=== PATIENT | female | born 1940 | race Caucasian/White ===

== ENCOUNTER 2023-04-27 20:23 | Emergency (ER) | payer OTHER, SELFPAY ==
[2023-04-27 20:25] VITALS: BP 150/60
[2023-04-27] MEDS: ADACEL 0.5 ML IM (22:44)
--- NOTE | 2023-04-27 22:51 | ED.GENMED ---
History of Present Illness
General
Chief Complaint: Fall
Time Seen by Provider: 04/27/23 21:18
Travel History
Have you had any contact with someone who has COVID-19?: No
Do you have any symptoms of coronavirus? Fever > 100 degrees, chills, cough, shortness of breath, sore throat, loss of taste or smell, muscle aches, or headache?: No
History of Present Illness
History of Present Illness:
83-year-old female presents the emergency department for evaluation of left elbow pain after a mechanical fall. She struck her elbow against a nearby object. There is a laceration to the left elbow with active bleeding. She is on Eliquis. Denies
any head strike or loss of consciousness. Denies any other complaints. Last tetanus is unknown
Past History
Past History
ED Past Medical History: Arrthythmia (Atrial fibrillation), HTN, Hypercholesterolemia and Other (parkinsons)
Patient has exhibited threatening behavior?: No
PSI?: No
Social History
Tobacco: Non-smoker
Alcohol: None
Drug: None
Personal:
Living: with family
Review of Systems
Review of Systems
Allergies reviewed?: Yes
All Other Systems: ROS reviewed and negative except as documented in HPI and ROS
Phy Exam
Physical Exam
Physical Exam:
GEN: Well appearing, NAD, WDWN
Eyes: PERRLA, EOMs intact, no scleral icterus
HENT: NCAT, oral mucosa moist, no JVD, no cervical adenopathy.
Lungs: CTAB, no wheezes, rales, rhonchi, normal chest wall excursion
Cardiac: RRR, no M/R/G, no peripheral edema. Radial pulses 2+ bilat
Neuro: AO x 3, no focal deficits to BUE/BLE, normal sensation throughout
MSK: Swelling and ecchymosis to the left olecranon with diffuse swelling of the left olecranon bursa. There is a 1.5 cm laceration overlying the central aspect of the bursa
Skin: No rashes, petechiae. Normal color, no pallor or jaundice.
Psych: Calm, cooperative, proper hygiene
Course
Orders/Labs/Results
Orders:
Orders
04/27/23 22:31
Cephalexin Monohydrate [Keflex] 500 mg PO NOW STA
Tetanus/Diphth/Acelpertussis [Adacel] 0.5 ml IM .ONCE ONE
CR Elbow - Left Min 3 Views Urgent
Comment:
Reason For Exam: fall elbow injury
04/27/23 23:15
Acetaminophen [Tylenol] 650 mg PO NOW STA
Vital Signs
Initial and Last Documented VS:
Initial Vital Signs
Temp Pulse Resp BP Pulse Ox
97.8 F 60 18 150/60 96
04/27/23 20:25 04/27/23 20:25 04/27/23 20:25 04/27/23 20:25 04/27/23 20:25
Last Documented Vital Signs
Temp Pulse Resp BP Pulse Ox
97.8 F 59 18 145/60 95
04/27/23 20:25 04/27/23 23:11 04/27/23 20:25 04/27/23 23:11 04/27/23 23:11
MDM/Problems Addressed
MDM/Problems Addressed:
There is significant swelling of the left olecranon bursa. Given the adjacent wound we will cover with antibiotics to hopefully prevent an olecranon bursitis. Tetanus updated
Comment
Comment:
The 1.5 cm left olecranon wound was cleansed copiously with normal saline. Anesthetized with 1% lidocaine with epinephrine, 5 mL injected adjacent to the wound. 3 4-0 Prolene sutures were used to reapproximate the wound with good apposition.
Dressed with nonstick gauze and bacitracin
*Critical Care Note
Total Time (30-74mins, 75-104mins- exclusive of procedures): Not Applicable
ED Attending Note
-
Portions of this chart may have been created with voice recognition software.� Occasional wrong word or��sound alike� substitutions may have occurred due to the inherent limitations of voice recognition software.
Discharge Plan
Departure
Patient Disposition: Home (Routine Discharge)
Date of Disposition: 04/27/23
Time of Disposition: 23:35
Patient with high blood pressure during this ER visit?: No
Discharge Problem:
Laceration of elbow, left
Instructions: Wound Care (DC)
Prescriptions:
New
cephalexin 500 mg capsule
500 mg PO TID 7 Days Qty: 21 0RF
No Action
omeprazole 20 MG capsule,delayed release(DR/EC)
40 mg PO DAILY
oxycodone-acetaminophen 5 MG/325 MG tablet
1 tab PO Q4HPRN PRN (Reason: pain) Qty: 17 0RF
docusate sodium 100 MG capsule
100 mg PO BID
vitamin B complex 1 TAB tablet
1 tab PO DAILY
cholecalciferol (vitamin D3) 1,000 UNITS tablet
1,000 units PO DAILY
Lactobacillus acidophilus [Probiotic] 1 EACH capsule
1 ea PO DAILY
apixaban [Eliquis] 5 MG tablet
5 mg PO BID
diltiazem HCl 300 MG capsule,extended release 24hr
300 mg PO DAILY
rosuvastatin 20 MG tablet
20 mg PO QPM
metoprolol tartrate 25 MG tablet
25 mg PO DAILY
timolol maleate 1 DROP drops
1 drp OPHTHALMIC BID
amoxicillin-pot clavulanate 875-125 mg tablet
1 tab PO BID Qty: 14 0RF
fosfomycin tromethamine [Monurol] 3 gram packet
3 g PO ONCE Qty: 1 0RF
Referrals:
Olivia Samano MD [Family Provider] -
Activity Restrictions/Additional Instructions:
Keep dry for 24 hours, then gently wash with soap and water each day until suture removal
Take the antibiotics as prescribed
If the elbow becomes red, hot and swollen, return for re-evaluation
Suture removal in 10-14 days by your primary care doctor, urgent care, or ER
Interventions
Interventions:
*Risk Screen - Suicide Last Done: 04/27/23 21:21
*General Assessment Last Done: 04/27/23 21:21
*Neglect/Abuse Screening Last Done: 04/27/23 21:21
ED- Fall Risk Assessment Last Done: 04/27/23 23:50
*ED COVID-19 Vaccine History Last Done: 04/27/23 23:14
*Nursing Disposition Last Done: 04/27/23 23:50
ED-Musculoskeletal Assessment Last Done: 04/27/23 21:22
ED- Neurological Assessment Last Done: 04/27/23 21:22
ED-Skin Assessment Last Done: 04/27/23 21:22
Discharge Date and Time
Discharge Date/Time: 04/27/23 23:50
[2023-04-27] MEDS: KEFLEX 500 MG PO (23:09)
[2023-04-27 23:11] VITALS: BP 145/60
[2023-04-27] MEDS: TYLENOL 650 MG PO (23:22)
== END 2023-04-27 23:50 | disposition home or self-care (01) ==
LOC: EMR 20:23
PROVIDERS: EMERGENCY PHYSICIAN Emergency Medicine; FAMILY PHYSICIAN Student in an Organized Health Care Education/Training Program
DX: S51.012A Laceration without foreign body of left elbow, initial encounter (principal); W19.XXXA Unspecified fall, initial encounter; Z23 Encounter for immunization
CPT/HCPCS: 99283; 12001; 90471; 73080; 90715

== ENCOUNTER → 2023-05-28 12:00 | Outpatient (REF) | payer OTHER, SELFPAY ==
--- NOTE | 2023-05-15 10:41 | PN.DIAED02 ---
Referral
DSME Class Series Code: [id number]
Referred For: Diabetes Self-Management Training, Self-Blood Glucose Monitoring, Long-Term Complication Instruction, Accute Complication Instruction, Disease Management
PHI Release Authorization Form Signed: Yes
Patient Problems:
Current Active Problems
Problem Status Onset
Type 2 diabetes mellitus without complications ~03/30/23
Demographic
(1) Type 2 diabetes mellitus without complications
Status: Acute Code(s): E11.9 - Type 2 diabetes mellitus without complications
Patient's primary language-: Taiwanese
Education: Vocation/Trade
Occupation: Retired
- Social
Primary Support Person: Self & spouse, Child
Primary Care Takers: Self & spouse, Child
Living Arrangements: Self & spouse, Child
- Learning Methods
Preferred Method: Hands-on demonstration
Barriers to Learning: None
Glycemic Control
- Blood Glucose Monitoring Assessment
Blood glucose monitoring at home: No
Frequency: 1x per day
Time: fasting
Patient uses Alternate Site Testing: No
Patient instructed on Use and Limitation: No
- Hypoglycemia Assessment
Patient has required treatment by others: No
History of Hypoglycemia Unawareness: No
- Hemoglobin A1c
Date: 03/30/23
A1C Percentage (%): 6.9
Medical History of Diabetes
Family Diabetes History: Mother
Previous Diabetes Education: No
Previous visit with Dietitian: No
Complications/Comorbidity/Specialist: Glaucoma, Heart Disease, Hypertension, Hyperlipidemia, Neuropathy, Poor circulation
Measures
- Anthropometrics
Height: 5 ft
Actual Weight: 62.142 kg
- Blood Pressure / Pulse
Blood pressure: 115/55
Pulse: 56
- Diabetes Management
Medical Management for Diabetes: Complete physical exam (02/07/2023), Dental exam (04/19/2023), Dilated eye exam (09/26/2022), Foot exam (02/07/2023), Pneumonia vaccination (02/07/2023)
Self-Care
- Tobacco Usage
Do you now, or have you ever smoked?: Never smoked
- Alcohol & Drugs Usage
Drinks Alcohol: No
- Meals & Dining
Meals & Dining: Patient skips meals: Yes, Food Intolerance / Allergy: No, Cultural / Protestant Dietary Needs: No
Primary Food Dermatology Procedural Physician: Child (Daughter)
Primary Sewer Builder: Child
Dining Out Frequency: Occasionally
- Physical Activity
Physical Limitation: Yes (Parkinson's disease )
Patient participates in physical Activity: No
- Self Foot-Care
Foot Problems: Neuropathy
- Patient-Self Assessment
Diabetes Knowledge: Poor
Feelings About Diabetes: Overwhelmed / Confused
General Health: Fair
Importance of Health: Somewhat
Stress Level: Medium
Diabetes Interferes With:: Nothing
Barriers to Diabetes Management: Other health problem
Depression Survey Score: 7
- Diabetes Identification
Carries Diabetes Identification: No
Diabetes Identification Information Provided: No
Care Plan
- Education Needs
Patient Education Needs: Diabetes disease process, Chronic complications, Acute complications, Monitoring, Physical activity, Nutritional management, Goal setting & problem solving
Recommended Diabetes Training Program based on assessment: Outpatient Diabetes Education Program
- Plan of Care
Plan of Care:
Met with Jade and her for registration and initiation of Diabetes Self-management classes. Pt was recommended by her PCP due to New onset T2DM, A1C 6.9%.
Pt stated that her PCP recommended she takes diabetes education classes before starting oral medications.
Pt reports that she was prediabetic for a long time and was monitoring her blood sugars using a [employer] glucose meter up until a few years ago when she stopped monitoring because her doctor was not doing anything about the numbers.
Pt reports recurrent episodes of falling at home, says she is going to start PT after she has completed the DSME program. Her diet consists of mainly CHO, she eats toast with butter for breakfast, Plain spaghetti w/o meat sauce, protein or anything
else for lunch and mashed potatoes with vegetables at dinner. Her Daughter dose all the food shopping and cooking.
She was counseled with emphasis on need to add protein to all her meals, discussed protein choices with Patti and encouraged her to come to class with her Daughter who is the food security operations center operator and the one that prepares all their meals.
We discussed dietary choices and importance of Physical activity at length. Goals for physical activity were established; pt will start exercising with PT after she has completed the diabetes education classes and has had some guidance from PT.
--- NOTE | 2023-05-15 14:24 | PN.DIAED04 ---
Education Record
- Education Record
Class Attended: Other (Pre-Registration for DSME classes)
DSME Class Series Code: [id number]
Instructor: Nurse Practitioner
Class Length (mins): 60
Pre-Program Knowledge: No knowledge
Pre-Test Score (%): 45
Goals
- Goal 1
Being Active: Exercise 15 minutes-3 times per week
Goals To Be Evaluated: Exercise 15 mins-3x/week
- Goal 2
Healthy Eating: Make better food choices
Goals To Be Evaluated: Make better food choices
- Goal 3
Monitoring: Follow monitoring schedule, Monitor more often
Goals To Be Evaluated: Follow monitoring times. Monitor more often
--- NOTE | 2023-05-29 09:50 | PN.DIAED14 ---
This is to notify you that your patient with diabetes, JETT MATAMOROS ( 1940), has enrolled in our diabetes self-management classes that are being held at [facility].
These classes will include an introduction to diabetes, diet, medication, exercise and prevention of complications. At the end of our class series, you will receive a report of your patient's participation and progress for your records.
Please contact me at the Diabetes Center, , if there is any particular information regarding your patient that might be helpful to me.
Sincerely,
--- NOTE | 2023-05-31 14:57 | PN.DIAED06 ---
Meal Plans - Regular
- Meal Plan
Diabetic Meal Plan Name: 1300 calories
Breakfast - Total Carbohydrate (grams): 30
Breakfast - Starch Carbohydrate: 0
Breakfast - Fruit Carbohydrate: 0
Breakfast - Milk Carbohydrate: 0
Breakfast - Nonstarchy Vegetables: Yes
Breakfast - Meat/Protein: 1
Breakfast - Fat: 2
Morning Snack - Total Carbohydrate (grams): 8
Morning Snack - Starch Carbohydrate: 0
Morning Snack - Fruit Carbohydrate: 0
Morning Snack - Milk Carbohydrate: 0
Morning Snack - Nonstarchy Vegetables: Yes
Morning Snack - Meat/Protein: 0.5
Morning Snack - Fat: 0
Lunch - Total Carbohydrate (grams): 30
Lunch - Starch Carbohydrate: 0
Lunch - Fruit Carbohydrate: 0
Lunch - Milk Carbohydrate: 0
Lunch - Nonstarchy Vegetables: Yes
Lunch - Meat/Protein: 2
Lunch - Fat: 1
Afternoon Snack - Total Carbohydrate (grams): 8
Afternoon Snack - Starch Carbohydrate: 0
Afternoon Snack - Fruit Carbohydrate: 0
Afternoon Snack - Milk Carbohydrate: 0
Afternoon Snack - Nonstarchy Vegetables: Yes
Afternoon Snack - Meat/Protein: 0.5
Afternoon Snack - Fat: 0
Dinner - Total Carbohydrate (grams): 30
Dinner - Starch Carbohydrate: 0
Dinner - Fruit Carbohydrate: 0
Dinner - Milk Carbohydrate: 0
Dinner - Nonstarchy Vegetables: Yes
Dinner - Meat/Protein: 2
Dinner - Fat: 1
Evening Snack - Total Carbohydrate (grams): 15
Evening Snack - Starch Carbohydrate: 0
Evening Snack - Fruit Carbohydrate: 0
Evening Snack - Milk Carbohydrate: 0
Evening Snack - Nonstarchy Vegetables: Yes
Evening Snack - Meat/Protein: 0
Evening Snack - Fat: 0
--- NOTE | 2023-06-04 14:44 | PN.DIAED04 ---
Education Record
- Education Record
Class Attended: Class 1
DSME Class Series Code: [id number]
Instructor: Nurse Practitioner (IRMA Campos)
Class Length (mins): 120
Post-Class 1 Test Score (%): 81
== END ==
LOC: DES 12:00
PROVIDERS: ATTENDING PHYSICIAN Student in an Organized Health Care Education/Training Program
DX: E11.9 Type 2 diabetes mellitus without complications (principal)
CPT/HCPCS: 99078

== ENCOUNTER → 2023-06-04 12:00 | Outpatient (REF) | payer OTHER, SELFPAY ==
--- NOTE | 2023-06-06 08:19 | PN.DIAED04 ---
Education Record
- Education Record
Class Attended: Class 2
[facility] Class Series Code: [id number]
Instructor: Registered Dietitian (Whitney Mcfadden, ALIDAN, LDN)
Class Length (mins): 120
== END ==
LOC: DES 12:00
PROVIDERS: ATTENDING PHYSICIAN Student in an Organized Health Care Education/Training Program
DX: E11.9 Type 2 diabetes mellitus without complications (principal)
CPT/HCPCS: 99078

== ENCOUNTER → 2023-06-11 12:00 | Outpatient (REF) | payer OTHER, SELFPAY ==
--- NOTE | 2023-06-19 13:03 | PN.DIAED04 ---
Education Record
- Education Record
Class Attended: Class 3
DSME Class Series Code: [id number]
Instructor: Registered Dietitian (Perla Cantu, RD, LDN, CDE)
Class Length (mins): 120
Post-Class 2 & 3 Test Score (%): 100
== END ==
LOC: DES 12:00
PROVIDERS: ATTENDING PHYSICIAN Student in an Organized Health Care Education/Training Program
DX: E11.9 Type 2 diabetes mellitus without complications (principal)
CPT/HCPCS: 99078

== ENCOUNTER → 2023-06-18 18:00 | Outpatient (REF) | payer OTHER, SELFPAY ==
--- NOTE | 2023-06-19 13:27 | PN.DIAED04 ---
Education Record
- Education Record
Class Attended: Class 4
DSME Class Series Code: [id number]
Instructor: Registered Nurse (Christi Lowery, RN, BSN, CDE)
Class Length (mins): 120
Post-Class 4 Test Score (%): 87
== END ==
LOC: DES 18:00
PROVIDERS: ATTENDING PHYSICIAN Student in an Organized Health Care Education/Training Program
DX: E11.9 Type 2 diabetes mellitus without complications (principal)
CPT/HCPCS: 99078

== ENCOUNTER 2023-06-19 13:52 | Outpatient (RCR) | payer OTHER, SELFPAY | END 2023-06-19 23:59 | disposition home or self-care (01) | LOC: RPT 13:52 | PROVIDERS: ATTENDING PHYSICIAN Nurse Practitioner; FAMILY PHYSICIAN Student in an Organized Health Care Education/Training Program | DX: G20.A1 Parkinson's disease without dyskinesia, without mention of fluctuations (principal); Z73.6 Limitation of activities due to disability; R26.2 Difficulty in walking, not elsewhere classified; M54.9 Dorsalgia, unspecified | CPT/HCPCS: 97110; 97112; 97116; 97162; 97530 ==

== ENCOUNTER → 2023-07-02 12:00 | Outpatient (REF) | payer OTHER, SELFPAY ==
--- NOTE | 2023-07-03 08:07 | PN.DIAED16 ---
This is to notify you that your patient with diabetes, JETT MATAMOROS ( 1940), has attended the entire series of Diabetes Self-Management Education Classes.
Class 1 (120 minutes): Diabetes Overview - monitoring, stress/psychosocial adjustment, support, goal setting
Class 2 (120 minutes): Meal Planning - serving sizes, menu plans
Class 3 (120 minutes): Introduction to Carbohydrate Counting, Analyzing Food Labels
Class 4 (120 minutes): Medication, Exercise and Activity
Class 5 (120 minutes): Sick Day Management, Strategies to Reduce Complications, Problem Solving, Resources
The following behavioral goals were identified:
Exercise 15 mins-3x/week
Make better food choices
Follow monitoring times
Monitor more often
A follow-up call will be made within three to six months to evaluate attainment of these goals and to check post-program Hemoglobin A1c and overall progress. All class participants are encouraged to contact me if I can be any further assistance in
learning how to manage their diabetes.
Sincerely,
IRMA Szymanski-, [facility]
Diabetes & Nutrition Services Director
--- NOTE | 2023-07-03 08:38 | PN.DIAED04 ---
Education Record
- Education Record
Class Attended: Class 5
DSME Class Series Code: [id number]
Instructor: Registered Nurse (Christi Lowery, RN, BSN, [facility])
Class Curriculum:
Outpatient Diabetes Education Program:
Class 5 (120 minutes)
Prevent, detect, and treat acute complications
Prevent, detect, and treat chronic complications through risk reduction
Develop personal strategies to address psychosocial issues and concerns
Development of diabetes self-management support plan
Letter to physician with DSMS plan attached sent
Class Length (mins): 120
Post-Program Knowledge: Demonstrates competency
Post-Test Score (%): 73
Post-Program Assessment
- Post-Program Assessment
Actual Weight: 136 lb 8 oz
Blood pressure: 133/54
Post-Program Depression Survey Score: 18
Reviewing Previous Goals?: Yes
Pre-Program Depression Survey Score: 7
- Goals 1 Evaluation
Goals To Be Evaluated: Exercise 15 mins-3x/week
- Goals 2 Evaluation
Goals To Be Evaluated: Make better food choices
- Goals 3 Evaluation
Goals To Be Evaluated: Follow monitoring times. Monitor more often
--- NOTE | 2023-07-03 08:59 | PN.DIAED12 ---
Depression is associated with poor diabetes self-management and perceived inability to control diabetes.
After careful consideration and multiple layers of input, the [facility]'s outpatient diabetes education program has implemented a depression screening tool. The tool is the PHQ-9 Quick Depression Assessment.
Each patient who attends the outpatient diabetes education class responds to 9 questions before the first class starts. At the completion of the 5 classes, each patient again responds to the same 9 questions. In theory, after completing the program
the hope is that the patient will feel somewhat more capable of diabetes self-management.
Your patient, JETT MATAMOROS ( 1940), scored 7 on the pre-depression screening and 18 on the post-depression screening which indicates moderate/severe depression.
If you require any additional information, please do not hesitate to contact me at [phone].
Sincerely,
IRMA Szymanski-ANDRADE, [facility]
Diabetes & Nutrition Services Director
== END ==
LOC: DES 12:00
PROVIDERS: ATTENDING PHYSICIAN Student in an Organized Health Care Education/Training Program
DX: E11.9 Type 2 diabetes mellitus without complications (principal)
CPT/HCPCS: 99078

== ENCOUNTER 2023-07-19 09:42 | Outpatient (RCR) | payer OTHER, SELFPAY | END 2023-07-19 23:59 | disposition home or self-care (01) | LOC: RPT 09:42 | PROVIDERS: ATTENDING PHYSICIAN Nurse Practitioner; FAMILY PHYSICIAN Student in an Organized Health Care Education/Training Program | DX: G20.A1 Parkinson's disease without dyskinesia, without mention of fluctuations (principal); Z73.6 Limitation of activities due to disability | CPT/HCPCS: 97110; 97112; 97116; 97530 ==

== ENCOUNTER 2023-08-02 13:07 | Outpatient (RCR) | payer OTHER, SELFPAY | END 2023-08-02 14:15 | disposition home or self-care (01) | LOC: RPT 13:07 | PROVIDERS: ATTENDING PHYSICIAN Nurse Practitioner; FAMILY PHYSICIAN Student in an Organized Health Care Education/Training Program | DX: G20.A1 Parkinson's disease without dyskinesia, without mention of fluctuations (principal); Z73.6 Limitation of activities due to disability | CPT/HCPCS: 97110; 97112; 97530 ==

== ENCOUNTER 2023-11-15 07:25 | Outpatient (RCR) | payer OTHER, SELFPAY | END 2023-11-15 23:59 | disposition home or self-care (01) | LOC: RPT 07:25 | PROVIDERS: ATTENDING PHYSICIAN Student in an Organized Health Care Education/Training Program | DX: R42 Dizziness and giddiness (principal); Z73.6 Limitation of activities due to disability | CPT/HCPCS: 97112; 97162 ==

== ENCOUNTER 2023-11-23 12:41 | Outpatient (RCR) | payer OTHER, SELFPAY | END 2023-11-23 23:59 | disposition home or self-care (01) | LOC: RPT 12:41 | PROVIDERS: ATTENDING PHYSICIAN Student in an Organized Health Care Education/Training Program | DX: R42 Dizziness and giddiness (principal); Z73.6 Limitation of activities due to disability | CPT/HCPCS: 97112 ==

== ENCOUNTER 2023-12-29 12:53 | Emergency (ER) | payer OTHER, SELFPAY ==
[2023-12-29 12:56] VITALS: BP 162/77
[2023-12-29 13:55] LABS: % Basophils 0.6 % (0-2); % Eosinophils 1.4 % (0-6); % Immature Granulocytes 0.6 % (0-0.5); % Lymphocytes 17.2 % (20.5-51.1); % Monocytes 3.5 % (1.7-9.3); % Neutrophils 76.7 % (42.2-75.2); Absolute Basophils 0.1 10^3/uL (0-0.2); Absolute Eosinophils 0.1 10^3/uL (0-0.7); Absolute Immature Granulocytes 0.1 10^3/uL (0-0.05); Absolute Lymphocytes 1.5 10^3/uL (1.2-3.4); Absolute Monocytes 0.3 10^3/uL (0.1-0.6); Absolute Neutrophils 6.5 10^3/uL (1.4-6.5); Hematocrit 37.8 % (37.0-47.0); Hemoglobin 13.1 g/dL (12.0-16.0); Mean Corp Hgb Conc. 34.7 g/dL (33.0-37.0); Mean Corpuscular Hgb 29.8 pg (27.0-31.0); Mean Corpuscular Volume 85.9 fL (81.0-99.0); Mean Platelet Volume 10.8 fL (7.4-10.4); Nucleated Red Blood Cells % 0 %; Platelet Count 223 10^3/uL (130-400); Red Cell Dist. Width 12.8 % (11.5-14.5); White Blood Cell Count 8.5 10^3/uL (4.8-10.8)
[2023-12-29 14:14] LABS: Albumin 4.6 g/dl (3.5-5.0); Carbon Dioxide 26 mmol/L (22-30); eGFR > 60.00
[2023-12-29 14:26] LABS: ALT (SGPT) 15 U/L (0-35); AST (SGOT) 23 U/L (14-36); Alkaline Phosphatase 86 U/L (38-126); Blood Urea Nitrogen 15 mg/dl (7-17); Chloride 103 mmol/L (98-107); Glucose 169 mg/dl (70-99); Potassium 3.9 mmol/L (3.5-5.1); Sodium 141 mmol/L (135-145); Total Bilirubin 0.5 mg/dl (0.2-1.3); Total Protein 7.5 g/dl (6.3-8.2)
[2023-12-29 14:58] VITALS: BP 122/61
[2023-12-29 15:00] VITALS: BP 138/57
[2023-12-29] MEDS: ANTIVERT 12.5 MG PO (15:36)
[2023-12-29 15:56] LABS: Urine Albumin Trace (Neg - Trace); Urine Bilirubin Negative (Negative); Urine Character Very Cloudy (Clear); Urine Color Yellow; Urine Glucose Negative (Negative); Urine Ketone Negative (Negative); Urine Leukocyte 2+ (Negative); Urine Nitrite Positive (Negative); Urine Occult Blood 2+ (Negative); Urine Specific Gravity 1.015 (<1.030); Urine Urobilinogen 2+ (Neg - 1+); Urine pH 6.5 (5.0-9.0)
[2023-12-29 16:07] LABS: Urine Bacteria Many (Negative); Urine White Cell >100 /HPF (0-5)
--- NOTE | 2023-12-29 16:08 | ED.GENMED ---
History of Present Illness
General
Chief Complaint: Dizziness
Time Seen by Provider: 12/29/23 13:17
History of Present Illness
History of Present Illness:
83-year-old female presents to the emergency department for evaluation of vertigo that began this morning. Symptoms resolved at rest but persist when she is upright. She also was concern for continued dysuria, states she was treated for UTI last
month and feels the symptoms never fully resolved. No fevers or chills. Denies any back pain or flank pain.
Past History
Past History
ED Past Medical History: Arrthythmia (Atrial fibrillation), HTN, Hypercholesterolemia and Other (parkinsons)
Patient has exhibited threatening behavior?: No
PSI?: No
Social History
Tobacco: Non-smoker
Alcohol: None
Drug: None
Personal:
Living: with family
Review of Systems
Review of Systems
Allergies reviewed?: Yes
All Other Systems: ROS reviewed and negative except as documented in HPI and ROS
Phy Exam
Physical Exam
Physical Exam:
GEN: Well appearing, NAD, WDWN
HEENT: Oral mucosa moist, no scleral icterus, no nasal congestion
Cardiac: Regular rate
Lung: No respiratory distress, no tachypnea
Abdomen: Soft, nontender
MSK: No gross deformity or injuries
Skin: Good color, no pallor or jaundice, no rashes
Neuro: AO x3; CN II-XII grossly intact. BUE strength 5/5 in all silver, sensation intact and symmetric. BLE strength 5/5 in all silver, sensation intact and symmetric
Psych: Calm, cooperative
Course
Orders/Labs/Results
Orders:
Orders
12/29/23 12:58
ECG [Electrocardiogram (*1)] Urgent
Reason for Study: Vertigo / Dizzy
12/29/23 12:59
EKG- Treatment ONCE
12/29/23 13:29
CT Head W/o Iv Contrast Urgent
Comment:
Reason For Exam: dizziness
12/29/23 13:45
Complete Blood Count/With Diff Urgent
Comprehensive Metabolic Panel Urgent
12/29/23 15:20
Meclizine [Antivert] 12.5 mg PO NOW STA
12/29/23 15:38
Urinalysis Reflex To Culture Urgent
Date Specimen was Collected: 12/29/23
Time Specimen was Collected: 15:35
Urine Microscopic Reflex Cult Urgent
Urine Culture Urgent
LEWIS Source: U
Specimen Description:
Date Specimen was Collected: 12/29/23
Time Specimen was Collected: 15:35
12/29/23 16:08
CefTRIAXone [Rocephin] 1,000 mg IV NOW STA
12/29/23 16:20
Sterile Water [Sterile Water For Injection] 10 ml .ROUTE .[facility]
Abnormal Lab Results
12/29/23 12/29/23
13:45 15:38
MPV 10.8 H fL
(7.4-10.4)
Abs Immat Gran (auto) 0.1 H 10^3/uL
(0-0.05)
Immature Gran % 0.6 H %
(0-0.5)
Neutrophils % 76.7 H %
(42.2-75.2)
Lymphocytes % 17.2 L %
(20.5-51.1)
Glucose 169 H mg/dl
(70-99)
Ur Occult Blood Reflex 2+ A
(Negative)
Urine Nitrite (Reflex) Positive A
(Negative)
Urine Urobilinogen 2+ A
(Neg - 1+)
Leukocyte Esterase Rfl 2+ A
(Negative)
Urine RBC 7-10 A /HPF
(0-2)
Urine WBC (Reflex) >100 A /HPF
(0-5)
Urine Bacteria (Reflex) Many A
(Negative)
12/29/23 13:45
12/29/23 13:45
Vital Signs
Initial and Last Documented VS:
Initial Vital Signs
Temp Pulse Resp BP Pulse Ox
98.1 F 66 20 162/77 98
12/29/23 12:56 12/29/23 12:56 12/29/23 12:56 12/29/23 12:56 12/29/23 12:56
Last Documented Vital Signs
Temp Pulse Resp BP Pulse Ox
98.1 F 73 16 138/57 94
12/29/23 12:56 12/29/23 16:15 12/29/23 16:15 12/29/23 15:00 12/29/23 16:15
MDM/Problems Addressed
MDM/Problems Addressed:
CT of the head is unremarkable. In regards to the patient's vertigo it is only present when she is upright and improved dramatically after meclizine. This is highly likely a benign positional vertigo. Urinalysis is grossly positive for UTI, will
treat with cephalosporins, labs reassuring, no indication for admission
*Critical Care Note
Total Time (30-74mins, 75-104mins- exclusive of procedures): Not Applicable
ED Attending Note
-
Portions of this chart may have been created with voice recognition software.� Occasional wrong word or��sound alike� substitutions may have occurred due to the inherent limitations of voice recognition software.
Discharge Plan
Departure
Patient Disposition: Home (Routine Discharge)
Date of Disposition: 12/29/23
Time of Disposition: 16:09
Patient with high blood pressure during this ER visit?: No
Discharge Problem:
Urinary tract infection
Instructions: Urinary Tract Infection, Adult ED
Prescriptions:
New
cefdinir 300 mg capsule
300 mg PO BID Qty: 14 0RF
meclizine 12.5 mg tablet
12.5 mg PO TID PRN (Reason: dizziness) Qty: 10 0RF
No Action
omeprazole 20 MG capsule,delayed release(DR/EC)
40 mg PO DAILY
oxycodone-acetaminophen 5 MG/325 MG tablet
1 tab PO Q4HPRN PRN (Reason: pain) Qty: 17 0RF
docusate sodium 100 MG capsule
100 mg PO BID
vitamin B complex 1 TAB tablet
1 tab PO DAILY
cholecalciferol (vitamin D3) 1,000 UNITS tablet
1,000 units PO DAILY
Lactobacillus acidophilus [Probiotic] 1 EACH capsule
1 ea PO DAILY
apixaban [Eliquis] 5 MG tablet
5 mg PO BID
diltiazem HCl 300 MG capsule,extended release 24hr
300 mg PO DAILY
rosuvastatin 20 MG tablet
20 mg PO QPM
metoprolol tartrate 25 MG tablet
25 mg PO DAILY
timolol maleate 1 DROP drops
1 drp OPHTHALMIC BID
amoxicillin-pot clavulanate 875-125 mg tablet
1 tab PO BID Qty: 14 0RF
fosfomycin tromethamine [Monurol] 3 gram packet
3 g PO ONCE Qty: 1 0RF
cephalexin 500 mg capsule
500 mg PO TID 7 Days Qty: 21 0RF
Referrals:
Olivia Samano MD [Family Provider] -
Interventions
Interventions:
*Risk Screen - Suicide Last Done: 12/29/23 13:34
*General Assessment Last Done: 12/29/23 12:56
*Neglect/Abuse Screening Last Done: 12/29/23 13:34
ED- Fall Risk Assessment Last Done: 12/29/23 13:34
*ED COVID-19 Vaccine History Last Done: 12/29/23 13:34
*Nursing Disposition Last Done: 12/29/23 16:28
ED- Neurological Assessment Last Done: 12/29/23 13:36
ED- Cardiac Assessment Last Done: 12/29/23 13:34
Discharge Date and Time
Discharge Date/Time: 12/29/23 16:28
Print Language: BULGARIAN
[2023-12-29] MEDS: ROCEPHIN 1000 MG IV (16:24)
== END 2023-12-29 16:28 | disposition home or self-care (01) ==
LOC: EMR 12:53
PROVIDERS: Physician Assistant; EMERGENCY PHYSICIAN Student in an Organized Health Care Education/Training Program; FAMILY PHYSICIAN Student in an Organized Health Care Education/Training Program
DX: N39.0 Urinary tract infection, site not specified (principal); R30.0 Dysuria; I48.91 Unspecified atrial fibrillation; I10 Essential (primary) hypertension; E78.00 Pure hypercholesterolemia, unspecified; G20.A1 Parkinson's disease without dyskinesia, without mention of fluctuations; Z87.440 Personal history of urinary (tract) infections
CPT/HCPCS: 99284; 96374; 70450; 80053; 81003; 81015; 85025; 87077; 87086; 87186; 93005

== ENCOUNTER → 2024-01-21 10:32 | Outpatient (REF) | payer OTHER, SELFPAY | LOC: RAD 10:32 | PROVIDERS: FAMILY PHYSICIAN Student in an Organized Health Care Education/Training Program | DX: N39.0 Urinary tract infection, site not specified (principal) | CPT/HCPCS: 76770 ==

== ENCOUNTER → 2024-04-15 10:16 | Outpatient (REF) | payer OTHER, SELFPAY | LOC: HWRAD 10:16 | PROVIDERS: ATTENDING PHYSICIAN Student in an Organized Health Care Education/Training Program | DX: S09.90XA Unspecified injury of head, initial encounter (principal); R05.3 Chronic cough | CPT/HCPCS: 70450; 71046 ==

== ENCOUNTER 2024-06-09 01:40 | Emergency (ER) | payer OTHER, SELFPAY ==
[2024-06-09 01:42] VITALS: BP 130/58
[2024-06-09 02:17] VITALS: BMI 27.1
[2024-06-09 02:27] LABS: % Basophils 0.6 % (0-2); % Eosinophils 2.5 % (0-6); % Immature Granulocytes 0.2 % (0-0.5); % Lymphocytes 26.9 % (20.5-51.1); % Monocytes 10.8 % (1.7-9.3); Absolute Basophils 0.1 10^3/uL (0-0.2); Absolute Eosinophils 0.2 10^3/uL (0-0.7); Absolute Lymphocytes 2.3 10^3/uL (1.2-3.4); Absolute Monocytes 0.9 10^3/uL (0.1-0.6); Hematocrit 36.8 % (37.0-47.0); Hemoglobin 12.6 g/dL (12.0-16.0); Mean Corp Hgb Conc. 34.2 g/dL (33.0-37.0); Mean Corpuscular Volume 84.8 fL (81.0-99.0); Mean Platelet Volume 10.5 fL (7.4-10.4); Nucleated Red Blood Cells % 0 %; Platelet Count 229 10^3/uL (130-400); Red Blood Cell Count 4.34 10^6/uL (4.20-5.40); Red Cell Dist. Width 13.2 % (11.5-14.5); White Blood Cell Count 8.5 10^3/uL (4.8-10.8)
[2024-06-09 02:30] LABS: Urine Albumin 3+ (Neg - Trace); Urine Bilirubin Negative (Negative); Urine Color Yellow; Urine Glucose Negative (Negative); Urine Ketone Negative (Negative); Urine Leukocyte 3+ (Negative); Urine Nitrite Negative (Negative); Urine Occult Blood 4+ (Negative); Urine Urobilinogen Negative (Neg - 1+)
--- NOTE | 2024-06-09 02:30 | ED.GENMED ---
Addendum entered and electronically signed by Kaylyn Garcia PA-C 06/11/24 07:32:
group b strep urine culture
on cefdinir
no treatment change required
Original Note:
History of Present Illness
General
Chief Complaint: Urinary Symptoms
Source: patient
Exam Limitations: none
Time Seen by Provider: 06/09/24 01:55
Nursing documentation reviewed up to this point in time: agreed with
History of Present Illness
History of Present Illness:
84-year-old female with history as noted presents for evaluation of urinary symptoms. Patient reports onset of symptoms Sunday and they have been constant since that time. She says she has been having trouble sleeping because she is having urinary
frequency and dysuria which prompted her to finally come to the ER. She denies any fevers or chills. She says she has mild suprapubic pain. No flank pain. Denies any other complaints. Similar symptoms with UTI in the past.
Past History
Past History
ED Past Medical History: Arrthythmia (Atrial fibrillation), HTN, Hypercholesterolemia and Other (parkinsons)
Patient has exhibited threatening behavior?: No
PSI?: No
Social History
Tobacco: Non-smoker
Alcohol: None
Drug: None
Personal:
Living: with family
Review of Systems
Review of Systems
All Other Systems: ROS reviewed and negative except as documented in HPI and ROS
Constitutional: Denies fever or chills
Respiratory: Denies trouble breathing
Cardiac: Denies chest pain
ABD/GI: Reports abdominal pain; Denies nausea, vomiting or diarrhea
: Reports dysuria and frequency; Denies flank pain
Musculoskeletal: Denies neck pain or back pain
Neurological: Denies headache
Phy Exam
Physical Exam
Physical Exam:
General: Awake, alert, oriented x3; no acute distress
Head: Normocephalic, atraumatic
Eyes: Conjunctiva normal
Throat: Airway intact, handling secretions
Neck: Trachea midline, supple without meningismus
Lungs: Clear to auscultation bilaterally, no wheezing, rales, rhonchi
Heart: Regular rate and rhythm, no murmurs, gallops, or rubs
Abd: Soft, non distended, very mild suprapubic tenderness, no peritoneal signs or mass
Back: No CVA tenderness
Neuro: No gross deficits
Skin: no rash in area of concern
Extremities: Warm and well-perfused
Scores
Heart Failure Risk
Heart Failure Risk Score: Not Applicable
Heart Score for Chest Pain Patients
STEMI patient?: Not applicable
Withdrawal Assessment of Alcohol
Withdrawal Assessment Completed?: Not applicable
Sepsis
Sepsis Screening
Sepsis Assessment: Sepsis Ruled Out
Sepsis Screen
Sepsis Screen: Sepsis Ruled Out
Date: 06/09/24
Time: 05:17
Course
Orders/Labs/Results
Orders:
Orders
06/09/24 02:14
Complete Blood Count/With Diff Urgent
Comprehensive Metabolic Panel Urgent
Urinalysis Reflex To Culture Urgent
Date Specimen was Collected: 06/09/24
Time Specimen was Collected: 02:10
Urine Microscopic Reflex Cult Urgent
Urine Culture Urgent
LEWIS Source: U
Specimen Description:
Date Specimen was Collected: 06/09/24
Time Specimen was Collected: 02:10
06/09/24 03:02
Cefdinir [Omnicef] 300 mg PO NOW STA
Abnormal Lab Results
06/09/24
02:14
Hct 36.8 L %
(37.0-47.0)
MPV 10.5 H fL
(7.4-10.4)
Absolute Monos (auto) 0.9 H 10^3/uL
(0.1-0.6)
Monocytes % 10.8 H %
(1.7-9.3)
Creatinine 1.1 H mg/dL
(0.6-1.0)
Glucose 152 H mg/dl
(70-99)
Ur Occult Blood Reflex 4+ A
(Negative)
Leukocyte Esterase Rfl 3+ A
(Negative)
Urine WBC (Reflex) >100 A /HPF
(0-5)
Urine Bacteria (Reflex) Many A
(Negative)
Urine Albumin (Reflex) 3+ A
(Neg - Trace)
06/09/24 02:14
06/09/24 02:14
Vital Signs
Initial and Last Documented VS:
Initial Vital Signs
Temp Pulse Resp BP Pulse Ox
36.7 C 78 20 130/58 95
06/09/24 01:42 06/09/24 01:42 06/09/24 01:42 06/09/24 01:42 06/09/24 01:42
Last Documented Vital Signs
Temp Pulse Resp BP Pulse Ox
36.7 C 78 20 130/58 95
06/09/24 01:42 06/09/24 01:42 06/09/24 01:42 06/09/24 01:42 06/09/24 01:42
MDM/Problems Addressed
Differential Diagnosis Includes:
UTI, interstitial cystitis, hyperglycemia, vaginal atrophy
MDM/Problems Addressed:
84-year-old female presents for evaluation of dysuria and increased urinary frequency over the past few days consistent with prior UTI symptoms. Vitals and exam as above. Check basic labs and urinalysis. Reassess after the above. Hold on
abdominal imaging with only marginal suprapubic tenderness and no signs of sepsis�very low suspicion for surgical pathology.
Labs reviewed: CBC shows no leukocytosis, CMP shows mild RACHEL but no other clinically significant abnormalities. Her urinalysis is positive for infection. She has no signs of sepsis. Vital signs have been stable. I think she is a reasonable
candidate for treatment with oral antibiotic as an outpatient. Will need follow-up labs as an outpatient. Patient is very comfortable with this plan. Will provide dose of antibiotics here and discharged on cefdinir with Pyridium for dysuria.
Spoke about follow-up plan and return precautions and all questions answered.
*Pulse Oximetry
Patient hypoxic: no
*Critical Care Note
Total Time (30-74mins, 75-104mins- exclusive of procedures): Not Applicable
Data Reviewed
Source: patient and records
Further Testing Considered But Not Given:
Considered CT abdomen pelvis
ED Attending Note
-
Portions of this chart may have been created with voice recognition software.� Occasional wrong word or��sound alike� substitutions may have occurred due to the inherent limitations of voice recognition software.
Discharge Plan
Departure
Patient Disposition: Home (Routine Discharge)
Date of Disposition: 06/09/24
Time of Disposition: 03:02
Patient with high blood pressure during this ER visit?: No
Discharge Problem:
Acute UTI
Instructions: Urinary Tract Infection, Adult (DC)
Prescriptions:
New
phenazopyridine [Pyridium] 200 mg tablet
200 mg PO PC PRN (Reason: Pain) Qty: 6 0RF
cefdinir 300 mg capsule
300 mg PO BID Qty: 14 0RF
No Action
omeprazole 20 MG capsule,delayed release(DR/EC)
40 mg PO DAILY
oxycodone-acetaminophen 5 MG/325 MG tablet
1 tab PO Q4HPRN PRN (Reason: pain) Qty: 17 0RF
docusate sodium 100 MG capsule
100 mg PO BID
vitamin B complex 1 TAB tablet
1 tab PO DAILY
cholecalciferol (vitamin D3) 1,000 UNITS tablet
1,000 units PO DAILY
Lactobacillus acidophilus [Probiotic] 1 EACH capsule
1 ea PO DAILY
apixaban [Eliquis] 5 MG tablet
5 mg PO BID
diltiazem HCl 300 MG capsule,extended release 24hr
300 mg PO DAILY
rosuvastatin 20 MG tablet
20 mg PO QPM
metoprolol tartrate 25 MG tablet
25 mg PO DAILY
timolol maleate 1 DROP drops
1 drp OPHTHALMIC BID
amoxicillin-pot clavulanate 875-125 mg tablet
1 tab PO BID Qty: 14 0RF
fosfomycin tromethamine [Monurol] 3 gram packet
3 g PO ONCE Qty: 1 0RF
cephalexin 500 mg capsule
500 mg PO TID 7 Days Qty: 21 0RF
cefdinir 300 mg capsule
300 mg PO BID Qty: 14 0RF
meclizine 12.5 mg tablet
12.5 mg PO TID PRN (Reason: dizziness) Qty: 10 0RF
Activity Restrictions/Additional Instructions:
You should follow-up with your primary doctor within the next week to be reassessed and to get repeat blood work. Make sure you are drinking plenty of fluids and taking your medications as prescribed. If you feel your symptoms are worsening you
should return immediately to the emergency to be reassessed.
Thank you for visiting the Emergency Department at [facility].
1. Please schedule a follow up appointment as directed. Call first thing tomorrow morning to make an appointment.
2. If indicated, please take your medications as instructed and indicated on discharge paperwork.
3. If any of your symptoms do not improve, or persist, or become more severe within 6-12 hours, please return to the emergency department for further care.
4. Please return to the emergency department if you develop a headache, neck pain/stiffness, fever greater than 100.4F, chest pain, shortness of breath, persistent nausea, vomiting, slurred speech, difficulty walking, numbness/tingling, weakness,
signs of infection or any other symptoms that are worrisome to you.
Please call [phone] if you have any questions.
Interventions
Interventions:
*Risk Screen - Suicide Last Done: 06/09/24 01:42
*General Assessment Last Done: 06/09/24 02:17
*Neglect/Abuse Screening Last Done: 06/09/24 01:42
*ED- Fall Risk Assessment Last Done: 06/09/24 02:17
*ED COVID-19 Vaccine History Last Done: 06/09/24 02:17
*Nursing Disposition Last Done: 06/09/24 03:46
ED-Female Genitourinary Assessment Last Done: 06/09/24 02:45
Discharge Date and Time
Discharge Date/Time: 06/09/24 03:46
Print Language: SAMI
[2024-06-09 02:33] LABS: Urine Character Very Cloudy (Clear)
[2024-06-09 02:40] LABS: Urine Amorphous Seen; Urine Bacteria Many (Negative); Urine Squamous Cell SEEN /LPF (Few); Urine White Cell >100 /HPF (0-5)
[2024-06-09 02:55] LABS: ALT (SGPT) 12 U/L (0-35); AST (SGOT) 19 U/L (14-36); Alkaline Phosphatase 96 U/L (38-126); Blood Urea Nitrogen 15 mg/dl (7-17); Calcium 9.8 mg/dl (8.4-10.2); Carbon Dioxide 27 mmol/L (22-30); Chloride 106 mmol/L (98-107); Estimated Creatinine Clearance 31 ml/min; Glucose 152 mg/dl (70-99); Potassium 3.9 mmol/L (3.5-5.1); Sodium 142 mmol/L (135-145); Total Bilirubin 0.5 mg/dl (0.2-1.3); Total Protein 7.1 g/dl (6.3-8.2); eGFR 49.24
[2024-06-09] MEDS: OMNICEF 300 MG PO (03:14)
== END 2024-06-09 03:46 | disposition home or self-care (01) ==
LOC: EMR 01:40
PROVIDERS: EMERGENCY PHYSICIAN Emergency Medicine; FAMILY PHYSICIAN Student in an Organized Health Care Education/Training Program
DX: N39.0 Urinary tract infection, site not specified (principal); E78.00 Pure hypercholesterolemia, unspecified; I10 Essential (primary) hypertension; I48.91 Unspecified atrial fibrillation; G20.A1 Parkinson's disease without dyskinesia, without mention of fluctuations
CPT/HCPCS: 99283; 80053; 81003; 81015; 85025; 87077; 87086; 87147

== ENCOUNTER → 2024-07-17 12:55 | Outpatient (REF) | payer OTHER, SELFPAY | LOC: RCS 12:55 | PROVIDERS: ATTENDING PHYSICIAN Student in an Organized Health Care Education/Training Program; FAMILY PHYSICIAN Student in an Organized Health Care Education/Training Program | DX: I35.1 Nonrheumatic aortic (valve) insufficiency (principal) | CPT/HCPCS: 93306 ==

== ENCOUNTER → 2024-07-31 10:26 | Outpatient (REF) | payer OTHER, SELFPAY | LOC: RAD 10:26 | PROVIDERS: ATTENDING PHYSICIAN Student in an Organized Health Care Education/Training Program; FAMILY PHYSICIAN Student in an Organized Health Care Education/Training Program | DX: I35.1 Nonrheumatic aortic (valve) insufficiency (principal); I48.0 Paroxysmal atrial fibrillation; I10 Essential (primary) hypertension; R29.6 Repeated falls; R09.89 Other specified symptoms and signs involving the circulatory and respiratory systems; R53.83 Other fatigue | CPT/HCPCS: 75572; Q9967 ==

== ENCOUNTER 2024-09-23 05:54 | Inpatient (IN) | payer OTHER, SELFPAY ==
[2024-09-10 13:29] VITALS: BMI 26.9
[2024-09-10 13:35] LABS: Hematocrit 40.1 % (37.0-47.0); Hemoglobin 13.7 g/dL (12.0-16.0); Mean Corp Hgb Conc. 34.2 g/dL (33.0-37.0); Mean Corpuscular Volume 85.9 fL (81.0-99.0); Nucleated Red Blood Cells % 0 %; Platelet Count 241 10^3/uL (130-400); Red Cell Dist. Width 13.0 % (11.5-14.5)
[2024-09-10 13:48] LABS: INR 1.44; PT 18.1 Sec (11.4-14.6)
[2024-09-10 14:10] LABS: ALT (SGPT) < 10 U/L (0-35); AST (SGOT) 22 U/L (14-36); Albumin 4.8 g/dl (3.5-5.0); Alkaline Phosphatase 75 U/L (38-126); Blood Urea Nitrogen 15 mg/dl (7-17); Calcium 10.1 mg/dl (8.4-10.2); Carbon Dioxide 29 mmol/L (22-30); Chloride 104 mmol/L (98-107); Estimated Creatinine Clearance 38 ml/min; Glucose 121 mg/dl (70-99); Potassium 4.2 mmol/L (3.5-5.1); Sodium 140 mmol/L (135-145); Total Protein 8.0 g/dl (6.3-8.2); eGFR > 60.00
[2024-09-23] VITALS (13 sets, daily range): BP systolic 117–176; BP diastolic 51–72
--- NOTE | 2024-09-23 09:08 | WATCHMAN.MD ---
Watchman Implant
-
Watchman JOESPH occlusion device implantation:
Mr. Bobby is an 84 yrs old woman with recurrent falls and advised to stop anticoagulation therapy is here for Watchman implantation.
Date of Procedure:
09/23/24
Indications:
Recurrent falls with anticoagulation therapy for stroke prevention
Pre-Operative Diagnosis:
Atrial fibrillation with recurrent falls
Post-Operative Diagnosis:
Atrial fibrillation with recurrent falls
Procedure Performed:
Left atrial appendage occlusion with Watchman implantation (27 mm Watchman FLX Pro left atrial appendage closure device)
Performing Physicians:
ISABELL: David Rajan MD.
Transseptal flash oven operator: Roderick Turner MD.
Implanter: Diogo Arciniega MD
Anesthesia:
See anesthesia records
Detailed Description of the Procedure:
Written informed consent was obtained from the patient after a full explanation of the risks and benefits of the procedure including the risks of sedation and anesthesia.
The patient was brought to the electrophysiology laboratory in stable condition in fasting state. Continuous electrocardiographic and hemodynamic monitoring was initiated.
The initial rhythm was atrial fibrillation.
The procedure site was meticulously prepared with surgical scrub and allowed to dry with no pooling. Sterile draping was applied to cover the procedure site. The image intensifier was draped with sterile bag and positioned over the patient. After
infusion of local anesthetic, vascular access was obtained under ultrasound guidance and sheaths were placed over guide wire as detailed below.
Sheath and Catheter Placement:
In the right femoral vein, an 8-Croatian sheath was placed for Watchman placement procedure.
Sheaths:
��������������� Watchman delivery sheath upgraded from 8Fr sheath.
Catheters:
��������������� Watchman catheter
Trans-septal Puncture:
Heparin was initiated and infused to maintain appropriate ACT.
A VersaCross RF pigtail guidewire was advanced through the 8-Croatian sheath in the right femoral vein into the superior vena cava under fluoroscopic, ISABELL guidance. The 8Fr was upgraded the Watchman sheath and was advanced into the superior vena cava
over the guide wire. A transseptal VersaCross RF pigtail via Faradrive connect system was utilized to perform the trans-septal puncture. The apparatus was withdrawn until it was in contact with the fossa ovalis. The position was adjusted based on
fluoroscopy and ultrasound images from ISABELL. Under fluoroscopic, hemodynamic and ISABELL ultrasound guidance, left atrium was cannulated by applying the radiofrequency energy. The right atrial and left atrial pressure was monitored. A guide wire was
placed and was advanced into the left superior pulmonary vein. Both the sheath and the dilator was advanced into the left atrium. The dilator was withdrawn. Blood was aspirated from the sheath and arterial blood confirmed. The sheath was flushed.
Saline injection noted into the left atrium on ISABELL. The LA pressure was recorded. The saline injection was noted in the LA on the ISABELL. A curved pig tail was advanced over the guide wire into the left atrium and the wire was removed.
Left atrial appendage atriography:
The pigtail was advanced into the JOESPH and was confirmed on fluoroscopy and ISABELL. The contrast was injected and the JOESPH shape was recorded in KRAFT /Caudal view (20/35 degrees). The size of the JOESPH was again checked and confirmed reviewing the ISABELL and
the fluoroscopy along with previously obtained CT scan images.
Watchman Deployment:
The Watchman delivery sheath was advanced into the JOESPH over the pigtail till the right marker was at the location of the orifice line marked on the screen. The pigtail was removed and the Watchman delivery system was advanced through the sheath into
the JOESPH till it was aligned with the outer sheath marker inside the JOESPH. The watchman sheath was clicked with the outer sheath. Once acceptable location achieved, the outer sheath was pulled back keeping the device steady at the JOESPH location till a
ball of the device was formed under fluoroscopic guidance. The whole system was advanced further into the JOESPH till adequate depth is achieved into the JOESPH.� The JOESPH occluder was deployed and expanded adequately anchoring to the JOESPH. The device was
kept anchored with stable pressure to that location for 10 seconds.
The ISABELL image confirmed adequate expansion. The tug test was done that showed the device is anchored well and is not able to come out. The compression was 20% and 22% on the three sides. There was no significant leak noted on the Doppler via ISABELL.
The device was deployed by unscrewing the Watchman device and releasing from the connecting wire. The wire was pulled back into the sheath and the sheath was pulled out of the LA.
Implanted device:
WATCHMAN FLX Pro � 27mm
Procedure End
ISABELL study was done again that showed no epicardial accumulation that was unchanged from earlier. A repeated images showed no change in the pericardial space. No complications noted.
Following the completion of the deployment, catheters were removed. Protamine 40 mg was given at the end of the procedure and ACT was checked repeatedly. The sheath was removed and hemostasis achieved with VASCADE and manual compression after
acceptable ACT is achieved.
Left atrial Pressure:
Mean LA pressure was 4mmHg
Estimated Blood loss:
10 cc
Specimens Removed:
None.
Implants / Devices:
None
Urine output:
None
Packs / Drains/ Tubes:
None
Instrument / Sponge Count Correct:
Yes
Complications of the Procedure:
None
Condition of Patient at Time of Transfer:
Hemodynamically stable with no neurological or vascular compromise.
Summary:
Successful implantation of the left atrial occlusion device (WATCHMAN FLX Pro� 35mm)
Post procedure Plan for anticoagulation:
Continue Eliquis 5 mg BID for 3 month with ISABELL in 3 months.
In 3 months, based on ISABELL, will plan to discontinue Eliquis and continue ASA 81 mg indefinitely.
--- NOTE | 2024-09-23 09:27 | ITS.CL.PN ---
Assistant To The President - Procedure Note
Procedure
Procedure Note:
WATCHMAN LEFT ATRIAL APPENDAGE OCCLUSION REPORT
Date of Procedure: 09/23/2024
Referring: Dr. Olivia Samano MD, PhD
Indication: atrial fibrillation with high bleeding risk and high stroke risk
Operators: Diogo Arciniega MD, PhD (interventional cardiology); Dr. Roderick Turner MD (electrophysiology); Dr. Warren Rajan MD (cardiac imaging)
Anesthesia: general anesthesia provided by the anesthesia staff
PROCEDURE: left atrial appendage occlusion with a 27 mm Watchman FLX
ACCESS:
1. 14F right common femoral vein (closure: figure of eight stitch) - Ultrasound was utilized for vascular access. The vessel was visualized under ultrasound and noted to be patent. An image of the vessel was stored permanently in the patient's
medical record. Under direct ultrasound guidance, vascular access was obtained using a modified Seldinger technique and a 8 [place] sheath was placed.
HEMODYNAMIC DATA
LA 3 mmHg (250 cc fluid given)
PROCEDURE NARRATIVE:
The patient was intubated and sedated by anesthesiology and then prepped and draped in standard sterile fashion. A ISABELL probe was placed by cardiology and imaging performed demonstrating no left atrial appendage thrombus and no pericardial effusion.
Under ultrasound guidance, the right femoral vein was accessed by Dr. Roderick Turner with 8F sheath placed. Heparin was administered to achieve ACT>300.
The 8F sheath was exchanged over a Mofibo RF wire for the Watchman double curve sheath which was advanced to the SVC. The Watchman sheath was then pulled back under fluoroscopic and echo guidance until an appropriate inferior and posterior position
on the septum was achieved. During brief RF application, the wire was advanced through the interatrial septum into the left atrium. The wire was placed in the left upper pulmonary vein as confirmed by fluoroscopy and ISABELL. The dilator and sheath
easily tracked across the septum allowing placement of the sheath in the left atrium. Left atrial pressure was measured at 3 mmHg. 250 cc fluid was administered.
A 5F pigtail catheter was advanced through the sheath and placed in the left atrial appendage, and an appendage gram was performed demonstrating anatomy suitable for a 27 mm Watchman FLX device. The device was prepped on the back table, the pigtail
catheter removed, and the device delivered via the sheath to the left atrial appendage by Dr. Dennis Arciniega. The device was deployed slowly under continuous fluoroscopic and ISABELL visualization. After deployment, ISABELL imaging was performed to assess
PASS criteria. The device demonstrated excellent positioning, anchor stability on tug test, appropriate sizing with 20-22% compression, and appropriate seal with no leak at 0, 45, 90, or 135 degrees. Given PASS criteria were met, the device was then
released.
The delivery system retracted back into the sheath and removed from the body. The sheath was retracted into the right atrium with ISABELL demonstrating no significant R-L shunt or pericardial effusion. The sheath was removed and the venotomy closed with
[id number] knot. Protamine 40 mg was given. The patient was extubated and tolerated the procedure well.
RADIATION: dose 47.94 mGy; DAP 4.87 Gy*cm2; fluoroscopy time 8.2 min
CONCLUSIONS
1. transseptal puncture with ISABELL guidance
2. successful deployment of a 27 mm Watchman FLX device under fluoroscopic and ISABELL guidance
RECOMMENDATIONS:
1. anticoagulation with Eliquis 5 mg BID for 3 months
2. repeat ISABELL in 3 months
Copy to: Dr. Olivia Samano MD, PhD
Signed: Diogo Arciniega MD, PhD
[2024-09-23] MEDS: NSS 500 IV (10:25)
[2024-09-23] MEDS: TYLENOL 650 MG PO (10:25)
[2024-09-23] MEDS: SINEMET 25-100 0.5 TABLET PO (11:57)
[2024-09-23 13:39] LABS: ACT-LR - POC 393 Seconds (116-155)
--- NOTE | 2024-09-23 14:59 | W.DS.TRANS ---
DC Summary - [employer]
-
Discharge Instructions:
Discharge Diagnosis/Procedures Atrial fibrillation post Watchman
Diet Low Cholesterol
Driving Restrictions No driving for 24 hours
Others Tests YOUR 3 MONTH FOLLOW UP ISABELL IS SCHEDULED FOR 12/24
. YOU WILL GET A PHONE CALL FROM THE HOSPITAL
THE DAY BEFORE WITH INSTRUCTIONS AND TIME OF
ARRIVAL
Instructions:
Stand-Alone Forms: DC Instructions- Cath/EP Lab
Changes to Home Medications: No
Discharge Medications:
DC Medications w/original date entered in [employer]
Lactobacillus acidophilus 10 billion cell capsule (Probiotic) 1 ea PO DAILY 01/10/21
apixaban 5 mg tablet (Eliquis) 5 mg PO BID 01/10/21
cholecalciferol (vitamin D3) 25 mcg (1,000 unit) tablet 1,000 units PO DAILY 01/10/21
diltiazem HCl 300 mg capsule,extended release 24 hr 300 mg PO DAILY 01/10/21
metoprolol tartrate 25 mg tablet 25 mg PO DAILY 01/10/21
rosuvastatin 20 mg tablet 20 mg PO QPM 01/10/21
timolol maleate 0.25 % eye drops 1 drp OPHTHALMIC BID 01/10/21
carbidopa 25 mg-levodopa 100 mg tablet 0.5 tab PO TID 09/08/24
cranberry fruit concentrate 130 mg capsule (GennaMD) 130 mg PO DAILY 09/08/24
omeprazole 40 mg capsule,delayed release 40 mg PO DAILY 09/23/24
Home Medication Changes
Pending Results: No
== END 2024-09-23 14:00 | disposition home or self-care (01) | DRG 274 ==
LOC: CATH-IN 05:54
PROVIDERS: ADMITTING PHYSICIAN Student in an Organized Health Care Education/Training Program; FAMILY PHYSICIAN Student in an Organized Health Care Education/Training Program
PROC: B246ZZ4 Ultrasonography of Right and Left Heart, Transesophageal (ICD-10-PCS; 2024-09-23)
PROC: 02L73DK Occlusion of Left Atrial Appendage with Intraluminal Device, Percutaneous Approach (ICD-10-PCS; 2024-09-23)
DX: I48.0 Paroxysmal atrial fibrillation (principal); Z00.6 Encounter for examination for normal comparison and control in clinical research program; R29.6 Repeated falls; G20.A1 Parkinson's disease without dyskinesia, without mention of fluctuations; I10 Essential (primary) hypertension; E78.5 Hyperlipidemia, unspecified; E11.9 Type 2 diabetes mellitus without complications; K21.9 Gastro-esophageal reflux disease without esophagitis; M06.9 Rheumatoid arthritis, unspecified; K58.9 Irritable bowel syndrome, unspecified; H40.9 Unspecified glaucoma; E53.8 Deficiency of other specified B group vitamins; I44.0 Atrioventricular block, first degree; Z79.01 Long term (current) use of anticoagulants; Z90.711 Acquired absence of uterus with remaining cervical stump; Z88.0 Allergy status to penicillin; Z88.2 Allergy status to sulfonamides
CPT/HCPCS: 33340; 36415; 80053; 85025; 85347; 85610; 86850; 86900; 86901; 93005; 93355; C1894; Q9967

== ENCOUNTER 2024-12-24 06:27 | Day surgery (SDC) | payer OTHER, SELFPAY ==
[2024-12-08 13:37] VITALS: BMI 26.8
== END 2024-12-24 09:10 | disposition home or self-care (01) ==
LOC: CATH 06:27
PROVIDERS: ATTENDING PHYSICIAN Internal Medicine Cardiovascular Disease; FAMILY PHYSICIAN Student in an Organized Health Care Education/Training Program; OTHER PHYSICIAN Student in an Organized Health Care Education/Training Program
DX: I08.0 Rheumatic disorders of both mitral and aortic valves (principal); I48.0 Paroxysmal atrial fibrillation; I10 Essential (primary) hypertension; G20.A1 Parkinson's disease without dyskinesia, without mention of fluctuations; R29.6 Repeated falls; Z91.81 History of falling; E78.5 Hyperlipidemia, unspecified; R13.10 Dysphagia, unspecified; K44.9 Diaphragmatic hernia without obstruction or gangrene; E11.9 Type 2 diabetes mellitus without complications; Z79.84 Long term (current) use of oral hypoglycemic drugs; K21.9 Gastro-esophageal reflux disease without esophagitis; M06.9 Rheumatoid arthritis, unspecified; K58.9 Irritable bowel syndrome, unspecified; E53.8 Deficiency of other specified B group vitamins; H40.9 Unspecified glaucoma; Z90.49 Acquired absence of other specified parts of digestive tract; Z79.899 Other long term (current) drug therapy; Z79.01 Long term (current) use of anticoagulants; Z88.0 Allergy status to penicillin; Z88.2 Allergy status to sulfonamides; I49.1 Atrial premature depolarization; Z90.711 Acquired absence of uterus with remaining cervical stump; Z90.721 Acquired absence of ovaries, unilateral; Z95.818 Presence of other cardiac implants and grafts
CPT/HCPCS: 93312; 93320; 93325; 93005